=== PATIENT | male | born 1965 | race Asian ===

== ENCOUNTER 2021-05-06 18:23 | Inpatient (IN) | payer OTHER ==
[2021-05-06] MEDS ORDERED: NITROGLYCERIN 0.4 MG TAB SUBL SL ONE (18:34)
[2021-05-06] MEDS ORDERED: ASPIRIN 325 MG TAB PO ONE ×2 (18:34→21:00)
--- NOTE | 2021-05-06 18:36 | Emergency Department Report ---
ED Chest Pain HPI - General Chief Complaint: Chest Pain Stated Complaint: CHEST PAIN PUI?: No Time Seen by Provider: 05/06/21 18:32 Source: patient, EMS (Verbal report received from emergency medical services. EMS documentation not available at time of chart dictation ), RN notes reviewed Mode of arrival: Stretcher Limitations: No Limitations - History of Present Illness Initial Comments: The patient was evaluated in the emergency department for symptoms described in the history of present illness. He/she was evaluated in the context of the global COVID-19 pandemic, which necessitated consideration that the patient might be at risk for infection with the virus that causes COVID-19. Institutional protocols and algorithms that pertain to the evaluation of patients at risk for COVID-19 are in a state of rapid change based on information released by regulatory bodies including the CDC and federal and state organizations. These policies and algorithms were followed during the patient's care in the emergency department. Please note that these policies, procedures and recommendations changed on a rapid basis. The patient is a 55-year-old gentleman. He is not known to myself previously. He has a history of obesity. He does not see a primary care doctor. He presents to the ER today with EMS with a complaint of chest pain. The chest pain is central and left-sided. It does not radiate to the back, arms or neck. There is no vomiting but there is diaphoresis and shortness of breath. His pain is improved with nitroglycerin in the field. He states his pain is resolved. No family history of CAD/PE that he is aware of. Denies travel, surgery, immobilization, DVT and pulmonary embolism risk factors. Denies Covid symptomatology. No recent cardiac risk ratification that he is aware of. Does not use erectile dysfunction medication. Has not seen a primary care doctor in years. MD Complaint: chest pain -: Sudden, minutes(s) Onset: during rest Pain Location: substernal, left chest Pain Radiation: none Severity: severe Consistency: now resolved Improves With: nitroglycerin (Nitroglycerin), medication-other Worsens With: nothing re: diaphoresis Treatments Prior to Arrival: aspirin, nitroglycerin Aspirin use within the Past 7 Days: (0) No (Given aspirin by EMS.) - Related Data On Oral Contraceptives: No Previous Rx's Medication Instructions Recorded Last Taken Type Aspirin [Aspirin BABY CHEW TAB] 81 mg PO QDAY #30 tab.chew 05/08/21 Unknown Rx AtorvaSTATin [Lipitor] 40 mg PO QHS #30 tablet 05/08/21 Unknown Rx Clopidogrel [Plavix] 75 mg PO QDAY #30 tablet 05/08/21 Unknown Rx Metoprolol [Lopressor TAB] 25 mg PO BID #30 tablet 05/08/21 Unknown Rx Allergies Allergy/AdvReac Type Severity Reaction Status Date / Time No Known Allergies Allergy Verified 05/06/21 19:15 Heart Score - HEART Score History: Moderately suspicious EKG: Non-specific Age: 45-65 Risk factors: > 3 risk factors or hx of atherosclerotic disease (Obesity, tobacco use, elevated blood pressure) Troponin: 1-3x normal limit HEART Score: 6 - EKG Read Time Time EKG Completed: 18:39 EKG Read Time: 18:39 - Critical Actions Critical Actions: 4-6 pts:12-16.6% risk of adverse cardiac event. Should be admitted ED Review of Systems ROS: Stated complaint: CHEST PAIN Other details as noted in HPI Constitutional: diaphoresis, other (Denies loss of taste and smell). denies: fever Eyes: denies: vision change ENT: denies: epistaxis Respiratory: denies: cough Cardiovascular: chest pain Gastrointestinal: denies: vomiting, hematemesis, melena, hematochezia Genitourinary: denies: dysuria Musculoskeletal: denies: back pain Neurological: weakness Hematological/Lymphatic: denies: easy bleeding ED Past Medical Hx - Medications Home Medications: Home Medications Medication Instructions Recorded Confirmed Last Taken Type Aspirin [Aspirin BABY CHEW TAB] 81 mg PO QDAY #30 tab.chew 05/08/21 Unknown Rx AtorvaSTATin [Lipitor] 40 mg PO QHS #30 tablet 05/08/21 Unknown Rx Clopidogrel [Plavix] 75 mg PO QDAY #30 tablet 05/08/21 Unknown Rx Metoprolol [Lopressor TAB] 25 mg PO BID #30 tablet 05/08/21 Unknown Rx ED Physical Exam - General Limitations: No Limitations General appearance: alert, in no apparent distress, obese - Head Head exam: Present: atraumatic, normocephalic - Eye Eye exam: Present: normal appearance, EOMI. Absent: nystagmus - ENT ENT exam: Present: normal exam, normal orophraynx, mucous membranes moist, no rmal external ear exam - Neck Neck exam: Present: normal inspection, full ROM. Absent: tenderness, meningismus - Respiratory Respiratory exam: Present: normal lung sounds bilaterally. Absent: respiratory distress, wheezes, rales, rhonchi, stridor, decreased breath sounds - Cardiovascular Cardiovascular Exam: Present: regular rate, normal rhythm, normal heart sounds. Absent: bradycardia, tachycardia, irregular rhythm, systolic murmur, diastolic murmur, rubs, gallop - GI/Abdominal GI/Abdominal exam: Present: soft. Absent: distended, tenderness, guarding, rigid, pulsatile mass - Rectal Rectal exam: Present: deferred - Extremities Exam Extremities exam: Present: normal inspection, full ROM, pedal edema (1+ edema in the bilateral lower extremities) - Back Exam Back exam: Present: normal inspection. Absent: tenderness, CVA tenderness (R), CVA tenderness (L), paraspinal tenderness, vertebral tenderness - Neurological Exam Neurological exam: Present: alert, oriented X3, other (No facial droop. Tongue midline. Extraocular movements intact bilaterally. Facial sensation intact to light touch in V1, V2, V3 distribution bilaterally. 5 and a 5 strength in 4 extremities. Sensation intact to light touch in 4 extremities.). Absent: motor sensory deficit - Psychiatric Psychiatric exam: Present: anxious - Skin Skin exam: Present: warm, dry, intact, normal color. Absent: rash ED Course Vital Signs 05/06/21 05/06/21 05/06/21 19:04 19:15 19:30 Temperature Pulse Rate 83 79 78 Respiratory 22 18 Rate Blood Pressure 126/79 140/83 Blood Pressure [Left] O2 Sat by Pulse 94 93 Oximetry 05/06/21 05/06/21 05/06/21 19:33 19:45 20:01 Temperature 98.2 F Pulse Rate 74 79 71 Respiratory 20 13 19 Rate Blood Pressure 140/83 148/88 Blood Pressure 140/83 [Left] O2 Sat by Pulse 97 99 99 Oximetry 05/06/21 05/06/21 05/06/21 20:15 20:31 20:45 Temperature Pulse Rate 78 78 80 Respiratory 20 19 23 Rate Blood Pressure 148/88 148/88 148/88 Blood Pressure [Left] O2 Sat by Pulse 98 Oximetry 05/06/21 05/06/21 05/06/21 21:01 21:15 21:31 Temperature Pulse Rate 77 Respiratory 15 17 18 Rate Blood Pressure 148/88 171/102 171/102 Blood Pressure [Left] O2 Sat by Pulse 98 97 Oximetry 05/06/21 05/06/21 05/06/21 21:36 21:45 22:01 Temperature Pulse Rate Respiratory 20 17 Rate Blood Pressure 171/102 164/95 Blood Pressure [Left] O2 Sat by Pulse 97 98 96 Oximetry 05/06/21 05/06/21 05/06/21 22:15 22:17 22:31 Temperature Pulse Rate Respiratory Rate Blood Pressure 164/95 164/95 164/95 Blood Pressure [Left] O2 Sat by Pulse 99 98 97 Oximetry 05/06/21 05/06/21 05/06/21 22:39 22:41 22:50 Temperature Pulse Rate Respiratory Rate Blood Pressure 164/95 164/95 118/79 Blood Pressure [Left] O2 Sat by Pulse 96 95 95 Oximetry - Reevaluation(s) Reevaluation #1: 05/06/21 19:31 Patient ruling in for non-ST elevation myocardial infarction. He is pain-free at this time. Hospital physician, Dr. Randi Letnz to admit to [facility] Patient updated on laboratory findings and significance of findings. He is agreeable to admission. We will start unfractionated heparin. We will discuss with cardiology to follow along in consultation. - Consultations Consultation #1: 05/06/21 19:36 Discussed history, physical, laboratory studies and imaging studies and clinical impression with cardiology on-call, Dr. Iverson. 05/06/21 19:38 Sees in agreement with plan of care, I will follow in consultation. JOSHUA score - Joshua Score Age > 65: (0) No Aspirin use within the Past 7 Days: (0) No (Given aspirin by EMS) 3 or more CAD Risk Factors: (1) Yes 2 or more Angina events in past 24 hrs: (1) Yes Known CAD with more than 50% Stenosis: (0) No Elevated Cardiac Markers: (1) Yes ST Deviation Greater than 0.5mm: (0) No JOSHUA Score: 3 ED Medical Decision Making - Lab Data Result diagrams: 05/08/21 04:45 05/08/21 04:45 Lab Results 05/06/21 Range/Units 18:42 WBC 6.0 (4.5-11.0) K/mm3 RBC 4.00 (3.65-5.03) M/mm3 Hgb 14.2 (11.8-15.2) gm/dl Hct 41.2 (35.5-45.6) % MCV 103 H (84-94) fl MCH 36 H (28-32) pg MCHC 35 H (32-34) % RDW 13.3 (13.2-15.2) % Plt Count 197 (140-440) K/mm3 Lymph % (Auto) 38.1 H (13.4-35.0) % [place] % (Auto) 8.2 H (0.0-7.3) % Eos % (Auto) 4.5 H (0.0-4.3) % Baso % (Auto) 0.9 (0.0-1.8) % Lymph # (Auto) 2.3 (1.2-5.4) K/mm3 [place] # (Auto) 0.5 (0.0-0.8) K/mm3 Eos # (Auto) 0.3 (0.0-0.4) K/mm3 Baso # (Auto) 0.1 (0.0-0.1) K/mm3 Seg Neutrophils % 48.3 (40.0-70.0) % Seg Neutrophils # 2.9 (1.8-7.7) K/mm3 Lab Results 05/06/21 05/06/21 05/06/21 Range/Units 18:42 18:42 18:42 WBC 6.0 (4.5-11.0) K/mm3 RBC 4.00 (3.65-5.03) M/mm3 Hgb 14.2 (11.8-15.2) gm/dl Hct 41.2 (35.5-45.6) % MCV 103 H (84-94) fl MCH 36 H (28-32) pg MCHC 35 H (32-34) % RDW 13.3 (13.2-15.2) % Plt Count 197 (140-440) K/mm3 Lymph % (Auto) 38.1 H (13.4-35.0) % [place] % (Auto) 8.2 H (0.0-7.3) % Eos % (Auto) 4.5 H (0.0-4.3) % Baso % (Auto) 0.9 (0.0-1.8) % Lymph # (Auto) 2.3 (1.2-5.4) K/mm3 [place] # (Auto) 0.5 (0.0-0.8) K/mm3 Eos # (Auto) 0.3 (0.0-0.4) K/mm3 Baso # (Auto) 0.1 (0.0-0.1) K/mm3 Seg Neutrophils % 48.3 (40.0-70.0) % Seg Neutrophils # 2.9 (1.8-7.7) K/mm3 PT 13.1 (12.2-14.9) Sec. INR 0.94 (0.87-1.13) APTT 25.3 (24.2-36.6) Sec. Sodium 133 L (137-145) mmol/L Potassium 3.9 (3.6-5.0) mmol/L Chloride 101.9 (98-107) mmol/L Carbon Dioxide 18 L (22-30) mmol/L Anion Gap 17 mmol/L BUN 9 (9-20) mg/dL Creatinine 0.8 (0.8-1.3) mg/dL Estimated GFR > 60 ml/min BUN/Creatinine Ratio 11 % Glucose 129 H (75-100) mg/dL Calcium 9.2 (8.4-10.2) mg/dL Magnesium 1.90 (1.7-2.3) mg/dL Total Bilirubin 0.20 (0.1-1.2) mg/dL AST 30 (5-40) units/L ALT 23 (7-56) units/L Alkaline Phosphatase 87 (35-129) units/L Total Creatine Kinase 218 H (55-170) units/L Troponin T 0.032 H (0.00-0.029) ng/mL Total Protein 7.2 (6.3-8.2) g/dL Albumin 3.9 (3.9-5) g/dL Albumin/Globulin Ratio 1.2 % Heart rate 95 bpm. O2 sat 95%. Respirations 16-18. Blood pressure 130/70 mmHg - EKG Data -: EKG Interpreted by [facility] EKG shows normal: sinus rhythm Rate: normal - EKG Data When compared to previous EKG there are: previous EKG unavailable 05/06/21 19:08 EKG interpreted at 18: 39 Sinus rhythm, 87 bpm. Normal axis, normal P wave axis. T wave inversion in inferior leads, and poor R wave progression. Abnormal EKG. Not a STEMI. - Radiology Data Radiology results: pending, image reviewed interpreted by me: 1 view x-ray the chest, interpreted by myself, shows no infiltrate, pneumothorax, or effusion. Osseous anatomy within normal limits. [facility] [address] [place] [address] XRay Report Signed Patient: OPAL BETANCOURT MR#: [id number] : 1965 Acct:[id number] Age/Sex: 55 / M ADM Date: 05/06/21 Loc: ED Attending Dr: Ordering Physician: STEPHEN NOLASCO MD Date of Service: 05/06/21 Procedure(s): XR chest 1V ap Accession Number(s): [id number] cc: STEPHEN NOLASCO MD Fluoro Time In Minutes: CHEST 1 VIEW 05/06/2021 6:08 PM INDICATION / CLINICAL INFORMATION: Chest Pain. COMPARISON: None available. FINDINGS: SUPPORT DEVICES: None. HEART / MEDIASTINUM: Prominent heart size LUNGS / PLEURA: No significant pulmonary or pleural abnormality. No pneumothorax. ADDITIONAL FINDINGS: No significant additional findings. IMPRESSION: 1. Prominent heart size, otherwise no acute cardiac pulmonary abnormality. Signer Name: Clement Adams DO Signed: 05/06/2021 7:17 PM Workstation Name: [id number] Transcribed By: NADIA Dictated By: CLEMENT ADAMS DO Electronically Authenticated By: CLEMENT ADAMS DO Signed Date/Time: 05/06/211916 DD/ 15 - Medical Decision Making Differential diagnosis, including but not limited to: Acute coronary syndrome, unstable angina, GERD, gastritis, hiatal hernia, pneumonia Assessment and plan: 55-year-old male, who is not currently tachycardic, tachypneic or hypoxic, who denies DVT and pulmonary embolism risk factors, who is low risk by Wells criteria for pulmonary embolism, who has equal pulses in the upper and lower extremities, with no pulsatile abdominal mass, unremarkable mediastinum x-ray the chest, very unlikely to be aortic disease, moderate risk for major adverse cardiac event as per heart score, with chest pain now reso lved, with nitroglycerin. Have recommended admission to the medical service for accelerated cardiac risk ratification. Patient is agreeable to this plan of care. He denies Covid symptomatology. 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 Critical Care Time: Yes Critical care time in (mins) excluding proc time.: 35 Critical care attestation.: If time is entered above; I have spent that time in minutes in the direct care of this critically ill patient, excluding procedure time. ED Disposition Clinical Impression: Acute chest pain, NSTEMI (non-ST elevated myocardial infarction), BMI 37.0- 37.9, adult Disposition: 09 ADMITTED INPATIENT Is pt being admited?: Yes Does the pt Need Aspirin: No Condition: Good
[2021-05-06 18:58] LABS: Basophils # (Auto) 0.1 K/mm3 (0.0-0.1); Basophils % (Auto) 0.9 % (0.0-1.8); Eosinophils # (Auto) 0.3 K/mm3 (0.0-0.4); Eosinophils % (Auto) 4.5 % (0.0-4.3); Hematocrit 41.2 % (35.5-45.6); Hemoglobin 14.2 gm/dl (11.8-15.2); Lymphocytes # (Auto) 2.3 K/mm3 (1.2-5.4); Lymphocytes % (Auto) 38.1 % (13.4-35.0); Mean Corpuscular HGB Conc 35 % (32-34); Mean Corpuscular Volume 103 fl (84-94); Monocytes # (Auto) 0.5 K/mm3 (0.0-0.8); Monocytes % (Auto) 8.2 % (0.0-7.3); Platelet Count 197 K/mm3 (140-440); Red Cell Distribution Width 13.3 % (13.2-15.2)
[2021-05-06 19:09] LABS: INR 0.94 (0.87-1.13); Partial Thromboplastin Time 25.3 Sec. (24.2-36.6)
[2021-05-06 19:15] LABS: Alanine Aminotransferase 23 units/L (7-56); Albumin 3.9 g/dL (3.9-5); BUN/Creatinine Ratio 11; Blood Urea Nitrogen 9 mg/dL (9-20); Calcium 9.2 mg/dL (8.4-10.2); Hemolysis Index 16
--- NOTE | 2021-05-06 19:21 | XRay Report ---
CHEST 1 VIEW 05/06/2021 6:08 PM INDICATION / CLINICAL INFORMATION: Chest Pain. COMPARISON: None available. FINDINGS: SUPPORT DEVICES: None. HEART / MEDIASTINUM: Prominent heart size LUNGS / PLEURA: No significant pulmonary or pleural abnormality. No pneumothorax. ADDITIONAL FINDINGS: No significant additional findings. IMPRESSION: 1. Prominent heart size, otherwise no acute cardiac pulmonary abnormality. Signer Name: Clement Rausch DO Signed: 05/06/2021 7:17 PM Workstation Name: [id number]
[2021-05-06 19:29] LABS: Chol/HDL Ratio 5.19 %; HDL Cholesterol 56 mg/dL (40-59); LDL Cholesterol,Direct TNR mg/dL (50-130)
[2021-05-06] MEDS ORDERED: HEPARIN 10,000 UNITS/10 ML VIAL IV ONE (19:33)
[2021-05-06] MEDS ORDERED: HEPARIN 10,000 UNITS/10 ML VIAL IV PRN ×2 (19:33→20:00)
[2021-05-06] MEDS ORDERED: HEPARIN/ 0.45% NACL DRIP 25,000 UNIT/500 ML BAG IV SCH (20:00)
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
[2021-05-06] MEDS ORDERED: SENNOSIDES 8.6 MG TAB PO PRN (20:50)
[2021-05-06] MEDS ORDERED: NITROGLYCERIN 0.4 MG TAB SUBL SL PRN (20:50)
[2021-05-06] MEDS ORDERED: traMADol 50 MG TAB PO PRN (20:50)
[2021-05-06] MEDS ORDERED: MAGNESIUM HYDROXIDE (MOM) ORAL LIQD UDC PO PRN (20:50)
[2021-05-06] MEDS ORDERED: oxyCODONE /ACETAMINOPHEN 5-325MG TAB PO PRN (20:50)
[2021-05-06] MEDS ORDERED: MORPHINE 2 MG/1 ML INJ IV PRN (20:50)
[2021-05-06] MEDS ORDERED: NALOXONE 0.4 MG/1 ML INJ IV PRN (20:50)
[2021-05-06] MEDS ORDERED: ACETAMINOPHEN 325 MG TAB PO PRN ×2 (20:50)
[2021-05-06] MEDS ORDERED: ALUM-MAG HYDROXIDE-SIMETHICONE 200-200-20MG/5ML ORAL LIQD 30 ML PO PRN (20:50)
[2021-05-06] MEDS ORDERED: METOCLOPRAMIDE 10 MG/2 ML INJ IV PRN (20:50)
[2021-05-06] MEDS ORDERED: ONDANSETRON 4 MG/2 ML INJ IV PRN (20:50)
[2021-05-06] MEDS ORDERED: hydrALAZINE 20 MG/1 ML INJ IV PRN (20:57)
[2021-05-06 21:53] LABS: Creatine Kinase MB 3.8 ng/mL (0.0-4.0)
[2021-05-06] MEDS ORDERED: traZODone 50 MG TAB PO SCH (22:00)
[2021-05-06] MEDS: METOPROLOL TARTRATE 25 MG TAB PO SCH (23:45)
[2021-05-07 05:08] LABS: Basophils # (Auto) 0.1 K/mm3 (0.0-0.1); Basophils % (Auto) 1.1 % (0.0-1.8); Eosinophils # (Auto) 0.3 K/mm3 (0.0-0.4); Eosinophils % (Auto) 5.2 % (0.0-4.3); Hematocrit 41.1 % (35.5-45.6); Hemoglobin 14.2 gm/dl (11.8-15.2); Lymphocytes # (Auto) 2.3 K/mm3 (1.2-5.4); Lymphocytes % (Auto) 37.2 % (13.4-35.0); Mean Corpuscular HGB Conc 35 % (32-34); Mean Corpuscular Volume 103 fl (84-94); Monocytes # (Auto) 0.5 K/mm3 (0.0-0.8); Monocytes % (Auto) 8.1 % (0.0-7.3); Platelet Count 189 K/mm3 (140-440); Red Cell Distribution Width 13.1 % (13.2-15.2)
[2021-05-07 05:34] LABS: Alanine Aminotransferase 21 units/L (7-56); Albumin 3.7 g/dL (3.9-5); BUN/Creatinine Ratio 9; Blood Urea Nitrogen 8 mg/dL (9-20); Hemolysis Index 7
[2021-05-07] MEDS ORDERED: REGADENOSON 0.4 MG/5 ML INJ IV ONE (06:44)
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
[2021-05-07] MEDS ORDERED: HEPARIN/NS 5000 UNIT/500ML 1,000 ML IR ONE (09:46)
[2021-05-07] MEDS ORDERED: SODIUM CHLORIDE 0.9% 500 ML 500 ML ONE (09:50)
[2021-05-07] MEDS ORDERED: SODIUM CHLORIDE 0.9% 500 ML 500 ML IV SCH (10:00)
--- NOTE | 2021-05-07 10:05 | Electrocardiograph Report ---
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
--- NOTE | 2021-05-07 10:08 | Electrocardiograph Report ---
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
[2021-05-07] MEDS: MIDAZOLAM 2 MG/2 ML INJ ONE ×2 (10:09→10:26)
[2021-05-07] MEDS: fentaNYL 100 MCG/2 ML INJ ONE ×3 (10:09→10:28)
[2021-05-07] MEDS: VERAPAMIL 5 MG/2 ML INJ ONE ×2 (10:10→10:28)
[2021-05-07] MEDS: LIDOCAINE (2%) 20 MG/1 ML VIAL 20 ML MDV INFILTRATI ONE ×2 (10:11→10:27)
[2021-05-07] MEDS: HEPARIN 10,000 UNITS/10 ML VIAL ONE ×2 (10:12→10:28)
[2021-05-07] MEDS: NITROGLYCERIN SYRINGE 3 ML ONE ×2 (10:14→10:28)
[2021-05-07] MEDS ORDERED: HEPARIN 10,000 UNITS/10 ML VIAL ONE (10:33)
[2021-05-07] MEDS: PANTOPRAZOLE 40 MG TAB PO SCH (10:38)
[2021-05-07] MEDS: METOPROLOL TARTRATE 25 MG TAB PO SCH ×2 (10:38→21:30)
[2021-05-07] MEDS ORDERED: CLOPIDOGREL 300 MG TAB ONE (11:00)
[2021-05-07] MEDS ORDERED: ALUM-MAG HYDROXIDE-SIMETHICONE 200-200-20MG/5ML ORAL LIQD 30 ML ONE (11:01)
[2021-05-07] MEDS ORDERED: SODIUM CHLORIDE 0.9% 1000 ML 1,000 ML IV SCH (11:30)
--- NOTE | 2021-05-07 13:26 | Cardiac Catherization Report ---
DATE OF SERVICE: 05/07/2021 LEFT HEART CATHETERIZATION CLINICAL INFORMATION: A 55-year-old -[place] gentleman, who is a smoker, obesity, presents with chest pain with non-ST elevation myocardial infarction type 1. He is here for left heart catheterization. Procedure was done with moderate sedation, started at 10:26, finished 10:52, 26 minutes of moderate sedation. DESCRIPTION OF PROCEDURE: Procedure was done via the right radial artery, sterile technique and local anesthesia. A 6-Cymraes radial sheath inserted. Left system engaged with JL3.5 catheter. Left main is large and patent, bifurcates into large LAD, proximal 95% lesion. The rest of the LAD is patent. Diagonal 1 small caliber was patent. Circumflex is a large codominant vessel, was patent proximally. Ostial OM1 has a 90% lesion, a small to medium caliber vessel. OM2 is a medium caliber vessel, mid 50%. OM3 is a medium caliber vessel, was patent. RCA is a small to medium caliber vessel, patent with small PDA, patent. LV gram done in [place] and [place] shows normal LV function. LVEDP 15 mmHg, LV is 131, aortic is 131/84. No gradient across the aortic valve on pullback. Percutaneous coronary intervention with intravascular ultrasound of the LAD. 1. Engaged the left system, an EBU 3.5 guiding catheter, achieved adequate ACT at 386 and a Runthrough wire was passed through, predilated the proximal LAD with 2.5 x 12, x 2 inflations at 15 atmospheres. 2. Intravascular ultrasound showed a distal reference of 4 and proximal reference 4.1. 3. Stented with a drug-eluting Resolute [place] 4.0 x 26 mm at 16 atmospheres. Excellent angiographic result. Multiple angiograms, removed coronary wire, continued OVI 3 flow, reduced stenosis from 95% down to 0. No dissection or embolization noted. A 6-Cymraes guiding catheter taken under guidewire. A 6-Cymraes radial sheath was discontinued. Radial band applied. No hematoma, no bleeding. SUMMARY: 1. Successful percutaneous coronary intervention of the proximal LAD with a drug-eluting Resolute Steven 4.0 x 26 mm at 16 atmospheres. Angiographically, left main, patent. Mid to distal LAD, patent. Circumflex, patent. OM1 ostial 90%, OM2 mid 50%, OM3 patent. RCA small codominant vessel, patent with normal left ventricular function. 2. Discussed this with the patient and the patient's family in detail. 600 Plavix was given, aspirin, Plavix, statin, and beta-shagufta therapy. TID: [id number] RECEIPT: [id number] CAROLINE/RAFAL/THOM
--- NOTE | 2021-05-07 14:31 | Progress Note ---
Assessment and Plan (1) Acute chest pain Current Visit: No Status: Acute Plan to address problem: Chest pain has improved after nitro sublingual As needed nitro sublingual Antiplatelets and statin Cardiology consulted (2) NSTEMI (non-ST elevated myocardial infarction) Current Visit: No Status: Acute Plan to address problem: Continue cardioprotective measures Oxygen supplement and monitor ABG Trend troponin and initiated heparin drip Cardiology consulted and s/p PCI with stent placement today (3) BMI 37.0-37.9, adult Current Visit: No Status: Acute Plan to address problem: Discussed lifestyle modification Healthy diet and weight management (4) Tobacco abuse Current Visit: No Status: Acute Plan to address problem: Discussed tobacco use cessation Cardiovascular neoplasm syndrome of tobacco use explained to patient Patient voiced understanding and said he will quit smoking (5) Hyperlipidemia Current Visit: No Status: Acute Plan to address problem: Start statin Check hemoglobin A1c (6) DVT prophylaxis Current Visit: No Status: Acute Plan to address problem: Heparin drip Daily clinical course: 05/07/21: s/p cardiac cath today with PCI to LAD, cont to monitor , d/c in the am if clinically stable Subjective Date of service: 05/07/21 Interval history: Patient seen and examined. Medical records and medication list reviewed. No acute event overnight noted by the RN. Patient is status post PCI today Discussed plan of care at bedside with patient. Objective - Exam Narrative Exam: GENERAL: well-developed and well-nourished male lying on bed appeared to be in no discomfort. HEENT: Normocephalic. Atraumatic. No conjunctival congestion or icterus. Patient has moist mucous membranes. NECK: Supple. Trachea midline. CHEST/LUNGS: Clear to auscultated bilaterally, breathing nonlabored. No wheezes crackles or rhonchi. HEART/CARDIOVASCULAR: Regular in rate and rhythm. S1 and S2 positive. ABDOMEN: Abdomen is soft, nontender. Patient has normal bowel sounds. SKIN: There is no rash. Warm and dry. NEURO: No focal motor deficit. Follows command. MUSCULOSKELETAL: No joint effusion or tenderness. EXTRIMITY: No edema, no cyanosis or clubbing. PSYCH: Cooperative. - Constitutional Vitals: Vital Signs - 12hr 05/07/21 05/07/21 05/07/21 04:33 05:23 07:36 Temperature 97.7 F 98.0 F Pulse Rate 69 72 Respiratory 18 18 Rate Blood Pressure 133/83 138/81 Blood Pressure [Left] O2 Sat by Pulse 98 99 97 Oximetry 05/07/21 05/07/21 05/07/21 11:45 12:00 12:15 Temperature 98.1 F 98.1 F Pulse Rate 79 84 74 Respiratory 17 16 15 Rate Blood Pressure Blood Pressure 130/74 127/67 130/74 [Left] O2 Sat by Pulse 97 97 96 Oximetry 05/07/21 05/07/21 05/07/21 12:37 14:04 14:10 Temperature Pulse Rate 77 Respiratory 16 17 17 Rate Blood Pressure Blood Pressure 131/87 [Left] O2 Sat by Pulse 97 99 Oximetry - Labs CBC & Chem 7: 05/08/21 04:45 05/08/21 04:45 Labs: Abnormal lab results 05/06/21 05/06/21 05/06/21 Range/Units 18:42 18:42 21:18 MCV 103 H (84-94) fl MCH 36 H (28-32) pg MCHC 35 H (32-34) % RDW (13.2-15.2) % Lymph % (Auto) 38.1 H (13.4-35.0) % [place] % (Auto) 8.2 H (0.0-7.3) % Eos % (Auto) 4.5 H (0.0-4.3) % Heparin Anti-Xa Level (0.3-0.7) U.I./ml Sodium 133 L (137-145) mmol/L Carbon Dioxide 18 L (22-30) mmol/L BUN (9-20) mg/dL Glucose 129 H (75-100) mg/dL Total Creatine Kinase 218 H (55-170) units/L Troponin T 0.032 H 0.116 H* D (0.00-0.029) ng/mL Albumin (3.9-5) g/dL Triglycerides 449 H (2-149) mg/dL Cholesterol 291 H (50-199) mg/dL 05/06/21 05/07/21 05/07/21 Range/Units 21:18 04:53 04:53 MCV 103 H (84-94) fl MCH 36 H (28-32) pg MCHC 35 H (32-34) % RDW 13.1 L (13.2-15.2) % Lymph % (Auto) 37.2 H (13.4-35.0) % [place] % (Auto) 8.1 H (0.0-7.3) % Eos % (Auto) 5.2 H (0.0-4.3) % Heparin Anti-Xa Level (0.3-0.7) U.I./ml Sodium (137-145) mmol/L Carbon Dioxide (22-30) mmol/L BUN (9-20) mg/dL Glucose (75-100) mg/dL Total Creatine Kinase 209 H (55-170) units/L Troponin T 0.052 H D (0.00-0.029) ng/mL Albumin (3.9-5) g/dL Triglycerides (2-149) mg/dL Cholesterol (50-199) mg/dL 05/07/21 05/07/21 Range/Units 04:53 04:53 MCV (84-94) fl MCH (28-32) pg MCHC (32-34) % RDW (13.2-15.2) % Lymph % (Auto) (13.4-35.0) % [place] % (Auto) (0.0-7.3) % Eos % (Auto) (0.0-4.3) % Heparin Anti-Xa Level 0.89 H (0.3-0.7) U.I./ml Sodium (137-145) mmol/L Carbon Dioxide (22-30) mmol/L BUN 8 L (9-20) mg/dL Glucose 138 H (75-100) mg/dL Total Creatine Kinase (55-170) units/L Troponin T (0.00-0.029) ng/mL Albumin 3.7 L (3.9-5) g/dL Triglycerides (2-149) mg/dL Cholesterol (50-199) mg/dL HEART Score - HEART Score EKG: Non-specific Age: 45-65 Risk factors: > 3 risk factors or hx of atherosclerotic disease (Obesity, tobacco use, elevated blood pressure) Troponin: Troponin T 0.052 ng/mL (0.00-0.029) H D 05/07/21 04:53 Troponin: 1-3x normal limit - Critical Actions Critical Actions: 4-6 pts:12-16.6% risk of adverse cardiac event. Should be admitted
[2021-05-08 06:29] LABS: Hematocrit 40.4 % (35.5-45.6); Hemoglobin 14.1 gm/dl (11.8-15.2)
[2021-05-08 06:47] LABS: BUN/Creatinine Ratio 9; Blood Urea Nitrogen 8 mg/dL (9-20); Calcium 9.1 mg/dL (8.4-10.2); Hemolysis Index 6
--- NOTE | 2021-05-08 09:09 | Discharge Summary ---
Providers - Providers Date of Admission: 05/06/21 19:39 Date of discharge: 05/08/21 Attending physician: DOC BRYANT MD 05/06/21 Consult to Cardiac Rehabilitation [CONS] Routine Reason For Exam: Phase I 05/06/21 19:27 Consult to Physician [CONS] Urgent Comment: Dr. Hu spoke with Dr. 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 Patient presents to the ED with chief complaint of chest pain and shortness of breath. Chest pain was relieved after patient took nitro sublingual. Patient denies any history of chest pain, shortness of breath, high blood pressure and diabetes. Patient admits tobacco use but denies chronic alcohol use and drug use. Patient also denies family history of CAD/PE. I reviewed patient medication record and vital signs. Reviewed blood work. Patient has elevated troponin. Consulted cardiology patient started on heparin drip. Hospital course (1) Acute chest pain Current Visit: No Status: Acute Plan to address problem: Chest pain has improved after nitro sublingual As needed nitro sublingual Antiplatelets and statin Cardiology consult (2) NSTEMI (non-ST elevated myocardial infarction) Current Visit: No Status: Acute Plan to address problem: Continue cardioprotective measures Oxygen supplement and monitor ABG Trend troponin and start heparin drip Cardiology consult (3) BMI 37.0-37.9, adult Current Visit: No Status: Acute Plan to address problem: Discussed lifestyle modification Healthy diet and weight management (4) Tobacco abuse Current Visit: No Status: Acute Plan to address problem: Discussed tobacco use cessation 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 05/08; patient was seen and evaluated this morning, patient does not have any chest pain. Discussed with cardiology and recommend to discharge with atorvastatin, metoprolol, aspirin and Plavix. Patient will follow with Dr. France in 2 weeks. Disposition: 01 HOME / SELF CARE / HOMELESS Final Discharge Diagnosis (Prints w/discharge instructions): Non-STEMI. Status post and placement. Hyperlipidemia Time spent for discharge: 35 minutes - Discharge Diagnoses (1) Chest pain Status: Acute Qualifiers: Ischemic chest pain type: unstable angina pectoris (2) NSTEMI (non-ST elevated myocardial infarction) Status: Acute (3) Hyperlipidemia Status: Chronic Qualifiers: Hyperlipidemia type: moderate mixed hyperlipidemia not requiring statin therapy Qualified Code(s): E78.2 - Mixed hyperlipidemia (4) Tobacco abuse Status: Chronic Core Measure Documentation - Palliative Care Palliative Care/ Comfort Measures: Not Applicable - Core Measures Any of the following diagnoses?: acute HI - Acute HI Discharge Requirements Aspirin at discharge: Yes CHAVA/ARB for LVSD if EF <40%: Not Applicable Beta shagufta at discharge: Yes Statin for LDL = or >100 mg/dl on DC: Yes Exam - Physical Exam Narrative exam: Not in cardiopulmonary distress. The patient is obese. Vital signs as documented. Head exam is unremarkable. No scleral icterus . Neck is without jugular venous distension, thyromegaly, or carotid bruits. Lungs are clear to auscultation. Cardiac exam reveals regular rate and Rhythm. Abdominal exam reveals normal bowel sounds, nontender, no organomegaly. Extremities are nonedematous and both femoral and pedal pulses are normal. SUEDE BRUSHER: Alert and oriented 3. No focal weakness. - Constitutional Vitals: Temp Pulse Resp BP Pulse Ox 98.4 F 78 18 141/81 96 05/08/21 08:42 05/08/21 08:42 05/08/21 08:42 05/08/21 08:42 05/08/21 08:42 Plan Activity: no restrictions Weight Bearing Status: Full Weight Bearing Diet: low cholesterol Follow up with: OSWALDO OSORIO MD [Primary Care Provider] - 7 Days BRAVO FRANCE MD [Staff Physician] - 14 Days Prescriptions: AtorvaSTATin [Lipitor] 40 mg PO QHS #30 tablet Aspirin [Aspirin BABY CHEW TAB] 81 mg PO QDAY #30 tab.chew Metoprolol [Lopressor TAB] 25 mg PO BID #30 tablet Clopidogrel [Plavix] 75 mg PO QDAY #30 tablet
[2021-05-08] MEDS: PANTOPRAZOLE 40 MG TAB PO SCH (09:29)
[2021-05-08] MEDS: METOPROLOL TARTRATE 25 MG TAB PO SCH (09:29)
--- NOTE | 2021-05-08 09:34 | Progress Note ---
Assessment and Plan 55-year-old male smoker hyperlipidemia with non-ST elevation ME NSTEMI Chest pain(resolved) * [facility] 05/07/2021-revealed left main patent LAD proximal 95% circumflex patent OM1 ostial 90% OM 250% OM 3 patent RCA codominant patent patient has successful PCI of the proximal LAD with a drug-eluting resolute 4.0 x 26 mm. By the right radial approach. Normal EF * Patient currently on DAPT with aspirin and Plavix * Patient on statin and beta-shagufta therapy. From a cardiac standpoint patient is stable and ok for discharge. Patient has a follow up appointment with Dr. France, [facility], on 05/26/2021 at 3:30pm at our [place] location Patient seen in conjunction with Dr. France who agrees with this plan of care. - Patient Problems (1) Chest pain Current Visit: Yes Status: Acute Qualifiers: Ischemic chest pain type: unstable angina pectoris (2) NSTEMI (non-ST elevated myocardial infarction) Current Visit: Yes Status: Acute (3) DVT prophylaxis Current Visit: No Status: Acute (4) Hyperlipidemia Current Visit: No Status: Chronic Qualifiers: Hyperlipidemia type: moderate mixed hyperlipidemia not requiring statin therapy Qualified Code(s): E78.2 - Mixed hyperlipidemia (5) Tobacco abuse Current Visit: No Status: Chronic Subjective Date of service: 05/08/21 Principal diagnosis: NSTEMI Interval history: Patient sitting in chair reports feeling well and expresses desire to go home Patient sinus 81 on monitor Objective Vital Signs Temp Pulse Resp BP BP Pulse Ox 05/08/21 08:42 98.4 F 78 18 141/81 96 05/08/21 05:40 98.5 F 73 18 134/79 95 05/07/21 23:39 98.2 F 71 18 132/76 96 05/07/21 20:54 17 99 05/07/21 19:20 97.7 F 87 18 113/66 97 05/07/21 16:04 97.6 F 125/79 05/07/21 15:04 16 05/07/21 15:00 87 05/07/21 14:10 17 99 05/07/21 14:04 17 05/07/21 13:13 147/85 05/07/21 12:37 77 16 131/87 97 05/07/21 12:15 74 15 130/74 96 05/07/21 12:00 98.1 F 84 16 127/67 97 05/07/21 11:45 98.1 F 79 17 130/74 97 - Physical Examination General: No Apparent Distress HEENT: Positive: PERRL, Mucus Membranes Moist Neck: Positive: neck supple, trachea midline Cardiac: Positive: Reg Rate and Rhythm Neuro: Positive: Grossly Intact Abdomen: Positive: Soft, Active Bowel Sounds. Negative: Tender, Distended Skin: Positive: Clear Incision: Cardiac Cath Site (dressing clean, dry and intact, no bleeding or hematoma) Musculoskeletal: No Pain, Normal Range of Motion Extremities: Present: normal. Absent: edema - Labs and Meds CBC 05/08/21 Range/Units 04:45 Hgb 14.1 (11.8-15.2) gm/dl Hct 40.4 (35.5-45.6) % Plt Count 179 (140-440) K/mm3 Comprehensive Metabolic Panel 05/08/21 Range/Units 04:45 Sodium 133 L (137-145) mmol/L Potassium 4.1 (3.6-5.0) mmol/L Chloride 99.6 (98-107) mmol/L Carbon Dioxide 23 (22-30) mmol/L BUN 8 L (9-20) mg/dL Creatinine 0.9 (0.8-1.3) mg/dL Glucose 135 H (75-100) mg/dL Calcium 9.1 (8.4-10.2) mg/dL - Imaging and Cardiology Echo: report reviewed (Normal LV function without significant regurgitation) - Telemetry EKG Rhythm: Sinus Rhythm - EKG Sinus rhythms and dysrhythmias: sinus rhythm Ventricular dysrhythmias: ventricular premature com
[2021-05-08] MEDS ORDERED: CLOPIDOGREL 75 MG TAB PO SCH (10:00)
[2021-05-08] MEDS ORDERED: ASPIRIN 81 MG TAB CHEW PO SCH (10:00)
[2021-05-08 14:16] VITALS: BP 133/84
== END 2021-05-08 16:43 | disposition home or self-care (01) | DRG 247 ==
LOC: ED 18:23 → 4A 19:39
PROVIDERS: ADMIT Internal Medicine; ATTEND Internal Medicine
PROC: 027034Z Dilation of Coronary Artery, One Artery with Drug-eluting Intraluminal Device, Percutaneous Approach (ICD-10-PCS; principal; 2021-05-07)
PROC: 4A023N7 Measurement of Cardiac Sampling and Pressure, Left Heart, Percutaneous Approach (ICD-10-PCS; 2021-05-07)
PROC: B2111ZZ Fluoroscopy of Multiple Coronary Arteries using Low Osmolar Contrast (ICD-10-PCS; 2021-05-07)
PROC: B2151ZZ Fluoroscopy of Left Heart using Low Osmolar Contrast (ICD-10-PCS; 2021-05-07)
PROC: B240ZZ3 Ultrasonography of Single Coronary Artery, Intravascular (ICD-10-PCS; 2021-05-07)
DX: I21.4 Non-ST elevation (NSTEMI) myocardial infarction (principal); Z68.37 Body mass index [BMI] 37.0-37.9, adult; F17.200 Nicotine dependence, unspecified, uncomplicated; Z71.6 Tobacco abuse counseling; E78.2 Mixed hyperlipidemia; I20.0 Unstable angina; E66.9 Obesity, unspecified
CPT/HCPCS: 36415; 71045; 80048; 80053; 80061; 82550; 82553; 83735; 84484; 85014; 85018; 85025; 85049; 85520; 85610; 85730; 92928; 92978; 93005; 93306; 93458; 99406; G0378; C1725; C1753; C1769; C1874; C1887; C1894; C9600; J1644; J2250; J3010; J7040; Q9967